=== PATIENT | female | born 1975 ===

== ENCOUNTER 2017-06-09 15:08 | Day surgery (SDC) | payer BC ==
[~2017-06-09] VITALS: Ht 167.6 cm; Wt 64.5 kg
[~2017-06-09 15:08] MED LIST: IBUP800 PO; METCAR500 PO; Percocet 5-3251 EACH PO; Valium5 MG PO
[2017-06-09] MEDS ORDERED: META800 PO (15:26)
== END 2017-06-09 16:03 | disposition home or self-care (01) ==
LOC: ORSCSDS 15:08
PROVIDERS: Anesthesiology
PROC: 3E0R33Z Introduction of Anti-inflammatory into Spinal Canal, Percutaneous Approach (ICD-10-PCS; principal; 2017-06-09 16:15)
DX: M51.16 Intervertebral disc disorders with radiculopathy, lumbar region (principal); Z87.891 Personal history of nicotine dependence
CPT/HCPCS: J1040

== ENCOUNTER → 2017-06-30 | Outpatient (CLI) | payer BC ==
[~2017-06-30] MED LIST changes: +META800 PO
== END ==
LOC: LAB SHORT 08:29 → PLD 08:29
DX: D22.5 Melanocytic nevi of trunk (principal)
CPT/HCPCS: 88305

== ENCOUNTER → 2020-02-02 | Outpatient (CLI) | payer OTHER ==
[2020-02-06 15:10] LABS: HPV 16 Negative (Negative); HPV 18 Negative (Negative); HPV OTHER HR TYPES Negative (Negative)
== END | disposition home or self-care (01) ==
LOC: LAB SHORT 13:37 → LAB 13:37
PROVIDERS: Obstetrics & Gynecology
DX: Z01.419 Encounter for gynecological examination (general) (routine) without abnormal findings (principal)
CPT/HCPCS: 87624; G0123